=== PATIENT | female | born 1990 | race Caucasian/White ===

== ENCOUNTER 2017-04-19 02:32 | Emergency (ER) | payer MEDICAID, SELFPAY | END 2017-04-19 03:52 | disposition home or self-care (01) | PROVIDERS: Emergency Provider Emergency Medicine; Visit Provider Emergency Medicine | DX: M54.5 Low back pain (principal); Z72.0 Tobacco use | CPT/HCPCS: 96372; 99283 ==

== ENCOUNTER 2017-05-06 07:06 | Emergency (ER) | payer MEDICAID, SELFPAY ==
[2017-05-06 07:08] VITALS: BP 153/74; PULSE 90; RESP 20; TEMP 36.7; O2SAT 97; BMI 34.4
[2017-05-06 07:32] LABS: Microscopic, Urine URINE MICROSCOPIC (MICROSCOPIC)
[2017-05-06 07:39] LABS: Appearance,Urine CLEAR (Clear); Blood, Urine Negative (Negative); Color,Urine ORANGE (Yellow); Glucose,Urine (UA) TRACE (Negative); Ketones,Urine TRACE (Negative); Leukocyte Esterase,Urine TRACE (Negative); Nitrate,Urine POSITIVE (Negative); Protein,Urine 2+ (Negative); Specific Gravity, Urine >= 1.030 (1.005-1.030); Urobilinogen,Urine >=8.0 EU/dl (0.2)
[2017-05-06 07:40] LABS: Bilirubin,Urine Negative (Negative)
[2017-05-06 07:46] LABS: Urine Pregnancy, HCG Qual. Negative (Negative)
[2017-05-06 07:47] LABS: Amorphous Sediment,Urine Trace /lpf; Bacteria,Urine Trace /lpf
--- NOTE | 2017-05-06 07:56 | HMH.EDGENADL ---
ED Disposition Clinical Impression: Urinary tract infection Disposition: Home, Self-Care Condition on Discharge: Good Instructions: DI for Urinary Tract Infection (UTI) Additional Instructions: Follow-up culture results with your primary care provider in 2-3 days. Additional instructions for URINARY TRACT INFECTION: See your physician as soon as possible for further evaluation. Return immediately if you have an uncontrollable fever greater than 102 degrees, severe back or abdominal pain, inability to urinate, or repetetive vomiting. Prescriptions: Ibuprofen [Ibuprofen 800mg Tab] 800 mg PO Q8HP PRN #15 tab PRN Reason: Moderate Pain Ciprofloxacin HCl [Ciprofloxacin 500mg Tab] 500 mg PO BID #20 tab Referrals: Jannie Garcia [Primary Care Provider] - - Critical Care Critical Care Time: No Attestation: On 05/06/17, the high probability of a clinically significant, sudden or life threatening deterioration of the following system(s) required my full and direct attention, intervention and personal management. The time I documented below is in addition to time spent performing reported procedures but includes the following listed in this critical care notation. Medical Decision Making Vital Signs: 05/06/17 07:08 Temperature 98.0 F Temperature Source Oral Pulse Rate [Right Brachial] 90 Respiratory Rate 20 Blood Pressure [Right Arm] 153/74 Blood Pressure Mean [Right Arm] 100 Blood Pressure Source [Right Arm] Automatic Cuff Blood Pressure Position [Right Arm] Sitting 02 Sat by Pulse Oximetry 97 Oxygen Delivery Method Room Air - Lab Data Lab Results 05/06/17 07:30: Urine Color [place], Urine Appearance Clear, Urine pH 5.0, Ur Specific [place] >= 1.030, Urine Protein 2+, Urine Glucose (UA) Trace, Urine Ketones Trace, Urine Blood Negative, Urine Nitrate Positive, Urine Bilirubin Negative, Urine Urobilinogen >=8.0, Ur Leukocyte Esterase Trace, Urine WBC 10-20, Ur Squamous Epith Cells 10-20, Amorphous Sediment Trace, Urine Bacteria Trace 05/06/17 07:30: Urine HCG, Qual Negative Orders (Tests/Meds): ORDERS Category Date Time Status Urine Culture Stat Micro 05/06/17 07:30 Received - Jesus Alberto Inquiry Pt receiving controlled substance: No General Adult HPI - General Chief complaint: Urogenital-Female Stated complaint: poss uti Mode of Arrival: Ambulatory Limitations: No Limitations Description of Symptoms (Recalled from ER Triage Doc. by RN): pt reports burning with urination and frequent urination that began today. Pt reports just finished a course of antibiotics yesterday for UTI. - History of Present Illness HPI narrative: Patient complains of dysuria, frequency, low back pain. She was treated for UTI at [facility] emergency department about 4-5 days ago. She says she received an antibiotic to begin with the M that she took twice a day for 4-5 days. She is also on Pyridium. Symptoms have returned after finishing her antibiotics yesterday. - Related Data Home Medications Medication Instructions Recorded Confirmed Topiramate [Topamax] 50 mg PO DAILY 05/06/17 05/06/17 Previous Rx's Medication Instructions Recorded Ciprofloxacin HCl [Ciprofloxacin 500 mg PO BID #20 tab 05/06/17 500mg Tab] Ibuprofen [Ibuprofen 800mg Tab] 800 mg PO Q8HP PRN #15 tab 05/06/17 Allergies Allergy/AdvReac Type Severity Reaction Status Date / Time No Known Allergies Allergy Unverified 04/19/17 03:07 [facility] History I have reviewed the patient's past medical history: Yes Medical History: Denies:: Cancer, Diabetes Mellitus Type 1, Diabetes Mellitus Type 2, MRSA Amputation: No - *Social History Educational Level: Completed High School Smoking Status: Current every day smoker Alcohol Intake: never - Psychiatric History Expresses thoughts of harming self/others: None Suicide Plan Description: No Plan - Constitutional Denies fever(s) - Gastrointestinal Reports abdomi
--- NOTE | 2017-05-06 07:59 | ED_ITS ---
ED Disposition Clinical Impression: Urinary tract infection Disposition: Home, Self-Care Condition on Discharge: Good Instructions: DI for Urinary Tract Infection (UTI) Additional Instructions: Follow-up culture results with your primary care provider in 2-3 days. Additional instructions for URINARY TRACT INFECTION: See your physician as soon as possible for further evaluation. Return immediately if you have an uncontrollable fever greater than 102 degrees, severe back or abdominal pain, inability to urinate, or repetetive vomiting. Prescriptions: Ibuprofen [Ibuprofen 800mg Tab] 800 mg PO Q8HP PRN #15 tab PRN Reason: Moderate Pain Ciprofloxacin HCl [Ciprofloxacin 500mg Tab] 500 mg PO BID #20 tab Referrals: Jannie Garcia [Primary Care Provider] - - Critical Care Critical Care Time: No Attestation: On 05/06/17, the high probability of a clinically significant, sudden or life threatening deterioration of the following system(s) required my full and direct attention, intervention and personal management. The time I documented below is in addition to time spent performing reported procedures but includes the following listed in this critical care notation. Medical Decision Making Vital Signs: 05/06/17 07:08 Temperature 98.0 F Temperature Source Oral Pulse Rate [Right Brachial] 90 Respiratory Rate 20 Blood Pressure [Right Arm] 153/74 Blood Pressure Mean [Right Arm] 100 Blood Pressure Source [Right Arm] Automatic Cuff Blood Pressure Position [Right Arm] Sitting 02 Sat by Pulse Oximetry 97 Oxygen Delivery Method Room Air - Lab Data Lab Results 05/06/17 07:30: Urine Color [place], Urine Appearance Clear, Urine pH 5.0, Ur Specific [place] >= 1.030, Urine Protein 2+, Urine Glucose (UA) Trace, Urine Ketones Trace, Urine Blood Negative, Urine Nitrate Positive, Urine Bilirubin Negative, Urine Urobilinogen >=8.0, Ur Leukocyte Esterase Trace, Urine WBC 10-20 , Ur Squamous Epith Cells 10-20, Amorphous Sediment Trace, Urine Bacteria Trace 05/06/17 07:30: Urine HCG, Qual Negative Orders (Tests/Meds): ORDERS Category Date Time Status Urine Culture Stat Micro 05/06/17 07:30 Received - Jesus Alberto Inquiry Pt receiving controlled substance: No General Adult HPI - General Chief complaint: Urogenital-Female Stated complaint: poss uti Mode of Arrival: Ambulatory Limitations: No Limitations Description of Symptoms (Recalled from ER Triage Doc. by RN): pt reports burning with urination and frequent urination that began today. Pt reports just finished a course of antibiotics yesterday for UTI. - History of Present Illness HPI narrative: Patient complains of dysuria, frequency, low back pain. She was treated for UTI at [facility] emergency department about 4-5 days ago. She says she received an antibiotic to begin with the M that she took twice a day for 4-5 days. She is also on Pyridium. Symptoms have returned after finishing her antibiotics yesterday. - Related Data Home Medications Medication Instructions Recorded Confirmed Topiramate [Topamax] 50 mg PO DAILY 05/06/17 05/06/17 Previous Rx's Medication Instructions Recorded Ciprofloxacin HCl [Ciprofloxacin 500 mg PO BID #20 tab 05/06/17 500mg Tab] Ibuprofen [Ibuprofen 800mg Tab] 800 mg PO Q8HP PRN #15 tab 05/06/17
[2017-05-06 08:08] VITALS: BP 121/67; PULSE 74; RESP 20; TEMP 36.6; O2SAT 98
== END 2017-05-06 08:08 | disposition home or self-care (01) ==
PROVIDERS: Emergency Provider Emergency Medicine; PCP Internal Medicine
DX: N30.00 Acute cystitis without hematuria (principal); F17.210 Nicotine dependence, cigarettes, uncomplicated
CPT/HCPCS: 81001; 81025; 87086; 99282

== ENCOUNTER → 2018-11-08 14:47 | Outpatient (CLI) | payer MEDICAID, SELFPAY ==
--- NOTE | 2018-11-08 14:53 | NVE_ITS ---
Venous Exam Indications: 729.5 Pain in limb. IMPRESSIONS 1. There is no evidence of significant reflux. 2. No evidence of deep or superficial vein thrombosis involving the veins of the right upper extremity Right upper extremity venous duplex. Doppler flow study including spectral analysis, color and guillen scale imaging. Location: Vascular laboratory. Patient status: Outpatient. Tables: Venous flow and imaging: + + + Location Flow properties + + + Right internal jugular Normal phasicity; spontaneous; compressible + + + Right subclavian Normal phasicity; spontaneous; normal augmentation; compressible + + + Right axillary Normal phasicity; spontaneous; normal augmentation; compressible + + + Right brachial Normal phasicity; spontaneous; normal augmentation; compressible + + + Right cephalic Normal phasicity; spontaneous; normal augmentation; compressible + + + Right basilic Normal phasicity; spontaneous; normal augmentation; compressible + + + Right radial Compressible + + + Right ulnar Compressible + + + Left subclavian Normal phasicity; spontaneous; normal augmentation; compressible + + + (Report amended ) Electronically signed by: Bruno Monique [id number]
[2018-11-08 17:06] LABS: Basophils # 0.1 K/mm3 (0-0.2); Basophils % 0.6 % (0.1-2.0); Eosinophils # 0.1 K/mm3 (0.0-0.4); Eosinophils % 0.7 % (0.1-12.0); Hematocrit 40.5 % (37.0-47.0); Hemoglobin 13.1 g/dL (12.2-16.2); Lymphocytes # 2.9 K/mm3 (0.7-4.5); Lymphocytes % 21.5 % (10-50); Mean Corpuscular HGB Conc 32.2 g/dL (31.8-35.4); Mean Corpuscular Hemoglobin 27.8 pg (27.0-31.2); Mean Corpuscular Volume 86.3 fl (81-99); Mean Platelet Volume 8.3 fl (7.4-10.4); Monocytes # 0.5 K/mm3 (0.1-1.0); Monocytes % 3.9 % (1.7-9.3); Neutrophils # 9.9 K/mm3 (1.8-7.8); Neutrophils % 73.3 % (37.0-80.0); Platelet Count 335 K/mm3 (142-424); Red Blood Count 4.69 M/mm3 (4.20-5.40); Red Cell Distribution Width 13.1 % (11.5-17.5); White Blood Count 13.5 K/mm3 (4.8-10.8)
[2018-11-08 17:26] LABS: Alanine Aminotransferase 37 U/L (12-78); Albumin Level 3.7 gm/dL (3.4-5.0); Albumin/Globulin Ratio 1.1 (1.1-1.8); Alkaline Phosphatase 87 U/L (46-116); Anion Gap 14.3 mEq/L (5-15); Aspartate Amino Transferase 21 U/L (15-37); Bilirubin,Total 0.2 mg/dL (0.2-1.0); Blood Urea Nitrogen 11 mg/dL (7-18); Calcium 9.2 mg/dL (8.5-10.1); Carbon Dioxide 24 mmol/L (21.0-32.0); Chloride 103 mmol/L (98-107); Chol/HDL Ratio 7.4 (1-3.5); Cholesterol 221 mg/dL (140-200); Creatinine,Serum 0.83 mg/dL (0.55-1.02); Estimated Glomerular Filt Rate 82 ml/min (>60); GFR (African American) 99 ML/MIN (>60); Globulin 3.4 gm/dl (1.3-3.2); Glucose 100 mg/dL (74-106); HDL Cholesterol 30 mg/dL (29-89); Potassium 4.3 mmoL/L (3.5-5.1); Sodium 137 mmol/L (136-145); T4 (Thyroxine) 8.5 ug/dl (4.7-13.3); Thyroid Stimulating Hormone 2.66 uIU/ml (0.358-3.740); Total Protein,Serum 7.1 gm/dL (6.4-8.2)
[2018-11-08 17:34] LABS: Triglycerides 550 mg/dL (30-200)
[2018-11-10 15:08] LABS: Hep A Ab, IgM Negative (Negative); Hepatitis B Core Antibody IgM Negative (Negative); Hepatitis B Surface Antigen Negative (Negative)
[2018-11-10 22:53] LABS: Hepatitis C Antibody <0.1 s/co ratio (0.0-0.9)
[2018-11-11 16:41] LABS: Vitamin D 25 Hydroxy 27.6 ng/mL (30.0-100.0)
== END ==
PROVIDERS: PCP Nurse Practitioner Family; Visit Provider Nurse Practitioner Family
DX: R53.83 Other fatigue (principal); K21.9 Gastro-esophageal reflux disease without esophagitis; Z11.59 Encounter for screening for other viral diseases; R59.9 Enlarged lymph nodes, unspecified; R60.9 Edema, unspecified; E55.9 Vitamin D deficiency, unspecified
CPT/HCPCS: 80053; 80061; 80074; 82652; 84436; 84443; 85025; 93971

== ENCOUNTER → 2018-11-18 15:31 | Outpatient (CLI) | payer MEDICAID, SELFPAY ==
--- NOTE | 2018-11-18 15:34 | US_ITS ---
US thyroid HISTORY: ITS.REASON: enlarged thyroid ORDERING PHYSICIAN: Franco De Leon APRN PATIENT AGE: 28 years Comparison: None FINDINGS: Echogenicity of the thyroid gland appears normal without nodules. Right lobe: 1.6 x 3.8 x 1.8 cm. Left lobe: 1.1 x 4.1 x 1.4 cm. Isthmus: AP diameter of the isthmus is 0.5 cm. IMPRESSION: Normal study. No evidence of thyroid nodule or abnormal enlargement.
== END ==
PROVIDERS: PCP Nurse Practitioner Family; Visit Provider Nurse Practitioner Family
DX: E04.9 Nontoxic goiter, unspecified (principal)
CPT/HCPCS: 76536

== ENCOUNTER → 2018-12-09 12:32 | Outpatient (CLI) | payer MEDICAID, SELFPAY ==
[2018-12-09 13:31] LABS: Hemoglobin A1C 5.4 % (0.0-7.0)
[2018-12-11 09:42] LABS: H. pylori Breath Test Negative (Negative)
== END ==
PROVIDERS: Visit Provider Nurse Practitioner Family
DX: K21.9 Gastro-esophageal reflux disease without esophagitis (principal); E78.2 Mixed hyperlipidemia
CPT/HCPCS: 36415; 83013; 83036

== ENCOUNTER → 2018-12-11 18:51 | Outpatient (CLI) | payer MEDICAID, SELFPAY ==
[2018-12-11 19:31] LABS: Amphetamine/Metha Screen,Urine Negative ng/mL (<1000); Barbiturates Screen,Urine Negative ng/mL (<200); Benzodiazepines Screen,Urine Negative ng/mL (<200); Cannabinoid Screen,Urine Negative ng/mL (<50); Cocaine Screen,Urine Negative ng/mL (<300); Methadone Screen,Urine Negative ng/mL (<300); Opiate Screen,Urine Negative ng/mL (<300); Phencyclidine Screen,Urine Negative ng/mL (<25)
== END ==
PROVIDERS: Visit Provider Nurse Practitioner Family
DX: Z79.899 Other long term (current) drug therapy (principal)
CPT/HCPCS: 80305

== ENCOUNTER → 2019-10-31 10:47 | Outpatient (CLI) | payer MEDICAID, SELFPAY ==
--- NOTE | 2019-10-31 10:50 | XR_ITS ---
PROCEDURE: XR LUMBAR SPINE 6V W BENDING CLINICAL INDICATION: back pain COMPARISON: No exams were available for comparison FINDINGS: No fracture or dislocation. No lytic or blastic change. There is normal mineralization. There is normal alignment. Minimal endplate osteophytes are present. No lytic or blastic change. Surgical clips are present in the right upper quadrant. The SI joints have an unremarkable appearance. Other findings:Flexion and extension views show no abnormal subluxation IMPRESSION: Minimal degenerative change, no acute finding No abnormal subluxation in flexion or extension Dictated by: Bruno Monique MD 10/31/2019 11:26 Electronically signed by Bruno Monique MD in [place] 10/31/2019 11:26
--- NOTE | 2019-10-31 10:50 | XR_ITS ---
PROCEDURE: XR HIP RT 2-3V W/PELVIS CLINICAL INDICATION: hip pain COMPARISON: No exams were available for comparison FINDINGS: No fracture or dislocation is evident. No significant degenerative change. No lytic or blastic change. Unremarkable soft tissues. Minimal exostosis noted at the lesser trochanter IMPRESSION: No acute findings. Dictated by: Bruno Monique MD 10/31/2019 11:27 Electronically signed by Bruno Monique MD in [place] 10/31/2019 11:27
== END ==
PROVIDERS: PCP Nurse Practitioner Family; Visit Provider Nurse Practitioner Family
DX: M25.551 Pain in right hip (principal); M54.9 Dorsalgia, unspecified
CPT/HCPCS: 72114; 73502